=== PATIENT | female | born 1950 ===

== ENCOUNTER 2017-03-17 18:16 | Inpatient (IN) | payer BC ==
[2017-03-17 18:16] VITALS: BMI 24.0
[2017-03-17] MEDS ORDERED: Sodium Chloride 0.9% 1,000 ML IV STA ×2 (19:11→22:27)
--- NOTE | 2017-03-17 19:31 | ED PDOC ---
HPI: Abdomen Time Seen by Provider: 03/17/17 18:45 Chief Complaint (Nursing): Abdominal Pain Chief Complaint (Provider): Abdominal Pain History Per: Patient History/Exam Limitations: no limitations Onset/Duration Of Symptoms: Days (x1) Location Of Pain/Discomfort: LLQ Additional Complaint(s): Tiff Alejo is a 67 year old female with a history of hypothyroidism and high cholesterol that presents to the ED with a chief complaint of mucous and blood present in her stool that she began to experience last night after she drank a milkshake. Patient reports that she has been experiencing left lower quadrant pain and went to the bathroom all night, but states that she was not having diarrhea, but was rather excreting mucous and blood. She reports associated headache and fever and has not taken any medication for her symptoms. She denies vomiting or pain in her rectum, but states that she may have a hemorrhoid. PMD: Dr. Chopra Past Medical History Reviewed: Historical Data, Vital Signs Vital Signs: Last Vital Signs Temp 101.0 F H 03/17/17 22:01 Pulse 86 03/17/17 18:44 Resp 20 03/17/17 18:44 BP 121/79 03/17/17 18:44 Pulse Ox 99 03/17/17 22:29 - Medical History PMH: Fractures (LEFT ARM /RIBS), HTN, Hypercholesterolemia, Hypothyroidism (s/p thyroidectomy), Osteoporosis Denies: HIV, Chronic Kidney Disease - Family History Family History: States: Unknown Family Hx - Immunization History Hx Tetanus Toxoid Vaccination: No Hx Influenza Vaccination: No Hx Pneumococcal Vaccination: No - Home Medications Home Medications: Ambulatory Orders Medication Instructions Recorded Rosuvastatin Calcium [Crestor] 10 mg PO MWF 12/14/14 Linaclotide [Linzess] 145 mcg PO DAILY 09/26/15 Calcium Carbonate/Vitamin D 1 tab PO BID #0 tab 09/27/15 [Oscal-D 250 mg-125 Units Tab] Levothyroxine [Synthroid] 88 mcg PO DAILY@0630 #0 tab 09/27/15 - Allergies Allergies/Adverse Reactions: Allergies Allergy/AdvReac Type Severity Reaction Status Date / Time aspirin Allergy Mild RASH Verified 09/26/15 11:41 seafood Allergy Mild RASH Uncoded 09/26/15 11:41 Review of Systems Gastrointestinal: Positive for: Abdominal Pain (LLQ), Other (mucous and blood present in stool). Negative for: Vomiting, Diarrhea, Rectal Pain Physical Exam - Reviewed Nursing Documentation Reviewed: Yes Vital Signs Reviewed: Yes - Physical Exam Appears: Positive for: Non-toxic, No Acute Distress Head Exam: Positive for: ATRAUMATIC, NORMOCEPHALIC Skin: Positive for: Normal Color, Warm Eye Exam: Positive for: Normal appearance, EOMI, PERRL ENT: Positive for: Normal ENT Inspection. Negative for: Pharyngeal Erythema Cardiovascular/Chest: Positive for: Regular Rate, Rhythm. Negative for: Murmur Respiratory: Positive for: Normal Breath Sounds. Negative for: Wheezing Gastrointestinal/Abdominal: Positive for: Soft, Tenderness (significant TTP of LLQ). Negative for: Distended, Rebound Neurologic/Psych: Positive for: Alert, Oriented. Negative for: Motor/Sensory Deficits - Laboratory Results Result Diagrams: 03/17/17 19:20 03/17/17 19:42 - ECG O2 Sat by Pulse Oximetry: 99 (RA) Pulse Ox Interpretation: Normal - Progress Re-evaluation Time: 22:25 Condition: Re-examined, Unchanged Medical Decision Making Medical Decision Making: Impression: Abdominal Pain, ddx include Acute Diverticulitis vs. Colitis Plan: * CT Scan A/P with IV contrast * VBG Shock Panel * CBC * Type and Screen * Blood Culture * Morphine 4 mg iV * Zofran Inj 4 mg IV * NaCl 1000 mL at 1000 mLs/hr * Reevaluation CT Scan A/P with IV Contrast IMPRESSION: - Findings compatible with acute diverticulitis of the sigmoid colon. The degree of associated colonic wall thickening and inflammation is marked. No evidence of abscess formation or perforation. - Small amount of abdominal and pelvic free fluid. - Otherwise, no evidence of significant acute process. - Large (9 x 9 cm) solid pelvic mass, most likely representing a large uterine fibroid. This could be confirmed with followup pelvic ultrasound, on a nonemergent basis. - See above for remaining findings Scribe Attestation: Documented by Josie Anderson, acting as a scribe for Kacy Boyle MD. Provider Scribe Attestation: All medical record entries made by the Scribe were at my direction and personally dictated by me. I have reviewed the chart and agree that the record accurately reflects my personal performance of the history, physical exam, medical decision making, and the department course for this patient. I have also personally directed, reviewed, and agree with the discharge instructions and disposition. Disposition - Clinical Impression Clinical Impression: Acute diverticulitis, Pelvic mass - Patient ED Disposition Is Patient to be Admitted: Yes Discussed With Dr.: Jase Chopra Doctor Will See Patient In The: Hospital Counseled Patient/Family Regarding: Studies Performed, Diagnosis - Disposition Disposition Time: 22:29 Condition: FAIR Forms: VIVA ([place]ots[place]an) - Pt Status Changed To: Hospital Disposition Of: Inpatient - Admit Certification Admit to Inpatient:: After my assessment, the patient will require hospitalization for at least two midnights. This is because of the severity of symptoms shown, intensity of services needed, and/or the medical risk in this patient being treated as an outpatient. - POA Present On Arrival: None
[2017-03-17 19:43] LABS: VENOUS BLOOD GAS BASE EXCESS 5.8 mmol/L (0.0-2.0); VENOUS BLOOD GAS PCO2 47 mmHg (40-60); VENOUS BLOOD PH 7.43 (7.32-7.43)
[2017-03-17 19:57] LABS: BASO % 0.4 % (0.0-2.0); EOS # 0.1 K/uL (0.0-0.7); EOS % 1.2 % (0.0-4.0); HEMATOCRIT 38.5 % (34.0-47.0); LYMPH # 1.6 K/uL (1.0-4.3); LYMPH % 13.9 % (20.0-40.0); MEAN CORPUSCULAR HEMOGLOBIN 28.7 pg (27.0-31.0); MONO # 0.8 K/uL (0.0-0.8); MONO % 6.7 % (0.0-10.0); NEUT # 9.1 K/uL (1.8-7.0); NEUT % 77.8 % (50.0-75.0); RED CELL DISTRIBUTION WIDTH 14.3 % (11.5-14.5); WHITE BLOOD COUNT 11.6 K/uL (4.8-10.8)
[2017-03-17 20:14] LABS: ALB/GLOB RATIO 1.4 (1.0-2.1); ALKALINE PHOSPHATASE 72 U/L (38-126); ALT/SGPT 27 U/L (9-52); AST/SGOT 30 U/L (14-36); BILIRUBIN,TOTAL 0.5 mg/dl (0.2-1.3); BLOOD UREA NITROGEN 13 mg/dl (7-17); CALCIUM 9.2 mg/dL (8.4-10.2); CARBON DIOXIDE 27 mmol/L (22-30); CHLORIDE 100 mmol/L (98-107); GFR AFRICAN-AMERICAN > 60; GLUCOSE,RANDOM 125 mg/dL (65-105); POTASSIUM 3.8 MMOL/L (3.6-5.0); SODIUM 140 mmol/l (132-148)
[2017-03-17] MEDS ORDERED: Iohexol 300 100 ML IJ ONE (21:04)
[2017-03-17] MEDS ORDERED: Sodium Chloride 0.9% 50 ML IV ONE (21:05)
--- NOTE | 2017-03-17 22:19 | CT ---
EXAM: CT Abdomen and Pelvis With Intravenous Contrast EXAM DATE/TIME: 03/17/2017 7:08 PM CLINICAL HISTORY: 67 years old, female; Pain; Abdominal pain; Localized; Left; Additional info: Llq pain bloody stools TECHNIQUE: Axial computed tomography images of the abdomen and pelvis with intravenous contrast. All CT scans at this facility use one or more dose reduction techniques, viz.: automated exposure control; ma/kV adjustment per patient size (including targeted exams where dose is matched to indication; i.e. head); or iterative reconstruction technique. Coronal and sagittal reformatted images were created and reviewed. CONTRAST: 90 mL of [id number] administered intravenously. COMPARISON: No relevant prior studies available. FINDINGS: LIMITATIONS: Mild streak/motion artifact. LOWER THORAX: No infiltrate seen in the lung bases. ABDOMEN: LIVER: No acute abnormality of the liver identified. GALLBLADDER AND BILE DUCTS: No CT evidence of acute cholecystitis. No evidence of significant biliary ductal dilatation. PANCREAS: No CT evidence of acute pancreatitis. SPLEEN: No acute abnormality of the spleen identified. ADRENALS: No acute abnormality of the adrenal glands identified. KIDNEYS AND URETERS: No acute abnormality of the kidneys identified. No evidence of significant hydrouereteronephrosis. STOMACH AND BOWEL: Moderate to marked fat stranding and infiltration, consistent with inflammatory change, is seen in the fat adjacent to the proximal to mid colon. Marked segmental wall thickening of the colon is also noted in this same area. There is a small amount of nearby pelvic free fluid. The inflammatory changes surround a colonic diverticulum, image 39/series 601. Findings are most compatible with acute diverticulitis. No evidence of significant focal fluid collection or abscess. No definite nearby extraluminal air seen to suggest perforation. Extensive diverticulosis of the left colon is noted. Otherwise, no significant abnormality of the bowel is identified. No evidence of bowel obstruction. APPENDIX: Appendix is seen, and is within normal limits in appearance. PELVIS: BLADDER: No acute abnormality of the bladder identified. REPRODUCTIVE: Large (9 x 9 cm) solid, well-defined, round mass is seen in the pelvis, abutting the uterus anteriorly, most likely representing a large uterine fibroid. This could be confirmed with followup pelvic ultrasound, on a nonemergent basis. No evidence of large cystic adnexal masses. ABDOMEN and PELVIS: INTRAPERITONEAL SPACE: Small amount of abdominal and pelvic free fluid. No evidence of free air. BONES/JOINTS: No acute fractures or other acute bony abnormality noted. SOFT TISSUES: No acute abnormality of the visualized soft tissues is seen. VASCULATURE: No evidence of abdominal aortic aneurysm. No evidence of periaortic hemorrhage. LYMPH NODES: No evidence of diffuse lymphadenopathy. IMPRESSION: - Findings compatible with acute diverticulitis of the sigmoid colon. The degree of associated colonic wall thickening and inflammation is marked. No evidence of abscess formation or perforation. - Small amount of abdominal and pelvic free fluid. - Otherwise, no evidence of significant acute process. - Large (9 x 9 cm) solid pelvic mass, most likely representing a large uterine fibroid. This could be confirmed with followup pelvic ultrasound, on a nonemergent basis. - See above for remaining findings.
[2017-03-17] MEDS ORDERED: Ciprofloxacin 400mg/200ml D5W 400 MG/200 ML BAG IVPB STA (22:26)
[2017-03-17] MEDS ORDERED: metroNIDAZOLE 500mg/100ml NS 100 ML IVPB STA (22:26)
[2017-03-18] MEDS: Dextrose 5%/Lactated Ringer's 1,000 ML IV SCH ×3 (01:13→16:16)
[2017-03-18] MEDS: Levothyroxine 88 MCG TAB PO SCH (06:10)
[2017-03-18 06:16] LABS: HEMATOCRIT 36.6 % (34.0-47.0); MEAN CELL VOLUME 87.2 fl (81.0-99.0); MEAN CORPUSCULAR HEMOGLOBIN 28.5 pg (27.0-31.0); MEAN CORPUSCULAR HGB CONC 32.6 g/dL (33.0-37.0); RED CELL DISTRIBUTION WIDTH 14.4 % (11.5-14.5); WHITE BLOOD COUNT 11.5 K/uL (4.8-10.8)
[2017-03-18 06:27] LABS: ALB/GLOB RATIO 1.3 (1.0-2.1); ALKALINE PHOSPHATASE 56 U/L (38-126); ALT/SGPT 25 U/L (9-52); AST/SGOT 20 U/L (14-36); BILIRUBIN,TOTAL 0.7 mg/dl (0.2-1.3); BLOOD UREA NITROGEN 7 mg/dl (7-17); CALCIUM 8.3 mg/dL (8.4-10.2); CARBON DIOXIDE 26 mmol/L (22-30); CHLORIDE 107 mmol/L (98-107); GFR AFRICAN-AMERICAN > 60; GLUCOSE,RANDOM 120 mg/dL (65-105); POTASSIUM 4.4 MMOL/L (3.6-5.0); SODIUM 143 mmol/l (132-148); TOTAL PROTEIN 6.1 G/DL (6.3-8.2)
[2017-03-18] MEDS ORDERED: Patient's Own Med (Rosuvastatin Calcium [Crestor] 10 MG) PO SCH (09:00)
[2017-03-18] MEDS: Ciprofloxacin 400mg/200ml D5W 400 MG/200 ML BAG IVPB SCH ×2 (10:16→20:56)
--- NOTE | 2017-03-18 14:21 | CP.PCM.HP ---
<Marcelo Anderson - Last Filed: 03/18/17 14:21> History of Present Illness - History of Present Illness History of Present Illness: 67 y/o female with a PMHx remakrable for hypothyroidism and HLD presented to the [facility] ED with a chief complaint of mucous and blood present in her stool. The symptoms she reports began last night after she drank a milkshake. Patient reports that she has been experiencing left lower quadrant pain and went to the bathroom all night, but states that she was not having diarrhea, but was rather excreting mucous and blood. She reports the pain is about 7/10 and isolated to LLQ. Nonradiating, constant, alleviated with rest. Exacerbated with movement and palpation. She reports associated headache and fever and has not taken any medication for her symptoms. She denies any sick contacts. Denies any chills, changes in vision, CP/SOB/Palpitations, N/V, urinary symptoms, numbness/ tingling. Of note, she reprots having prior symptoms in the past and has been admitted before for diverticulitis. Present on Admission - Present on Admission Any Indicators Present on Admission: No Review of Systems - Review of Systems Review of Systems: as per hpi Past Patient History - Past Medical History & Family History Past Medical History?: Yes - Past Social History Smoking Status: Never Smoked Alcohol: Social Drugs: Denies Home Situation {Lives}: With Family Domestic Violence: Negative - CARDIAC Hx Cardiac Disorders: Yes Hx Hypercholesterolemia: Yes Hx Hypertension: Yes - PULMONARY Hx Respiratory Disorders: No - NEUROLOGICAL Hx Neurological Disorder: No - HEENT Hx HEENT Problems: No - RENAL Hx Chronic Kidney Disease: No - ENDOCRINE/METABOLIC Hx Endocrine Disorders: Yes Hx Hypothyroidism: Yes (s/p thyroidectomy) - HEMATOLOGICAL/ONCOLOGICAL Hx Blood Disorders: No Hx Human Immunodeficiency Virus (HIV): No - INTEGUMENTARY Hx Dermatological Problems: No - MUSCULOSKELETAL/RHEUMATOLOGICAL Hx Musculoskeletal Disorders: Yes Hx Falls: Yes - GASTROINTESTINAL Hx Gastrointestinal Disorders: No - GENITOURINARY/GYNECOLOGICAL Hx Genitourinary Disorders: No - PSYCHIATRIC Hx Psychophysiologic Disorder: No Hx Substance Use: No - SURGICAL HISTORY Hx Surgeries: Yes Hx Orthopedic Surgery: Yes Hx Thyroidectomy: Yes - ANESTHESIA Hx Anesthesia: Yes Hx Anesthesia Reactions: No Hx Malignant Hyperthermia: No Meds Allergies/Adverse Reactions: Allergies Allergy/AdvReac Type Severity Reaction Status Date / Time aspirin Allergy Mild RASH Verified 09/26/15 11:41 seafood Allergy Mild RASH Uncoded 09/26/15 11:41 Physical Exam - Constitutional Appears: Non-toxic, No Acute Distress - Eye Exam Eye Exam: EOMI Pupil Exam: PERRL - ENT Exam ENT Exam: Mucous Membranes Moist - Respiratory Exam Respiratory Exam: Clear to Auscultation Bilateral, NORMAL BREATHING PATTERN. absent: Accessory Muscle Use, Rales, Rhonchi, Wheezes - Cardiovascular Exam Cardiovascular Exam: REGULAR RHYTHM, RRR, +S1, +S2. absent: Gallop, JVD, Rubs, Systolic Murmur - GI/Abdominal Exam GI & Abdominal Exam: Normal Bowel Sounds, Soft, Tenderness (LLQ). absent: Distended, Firm, Guarding, Rebound, Rigid - Extremities Exam Extremities exam: Positive for: normal capillary refill, normal inspection, pedal pulses present. Negative for: calf tenderness, pedal edema - Neurological Exam Neurological exam: Alert, CN II-XII Intact, Oriented x3 Results - Vital Signs Recent Vital Signs: Last Vital Signs Temp 98.3 F 03/18/17 08:20 Pulse 53 L 03/18/17 08:20 Resp 20 03/18/17 08:20 BP 99/58 L 03/18/17 08:20 Pulse Ox 94 L 03/18/17 08:20 - Labs Result Diagrams: 03/18/17 05:35 03/18/17 05:35 Labs: Laboratory Results - last 24 hr 03/17/17 03/17/17 03/17/17 19:20 19:20 19:33 WBC 11.6 H D RBC 4.43 Hgb 12.7 Hct 38.5 MCV 87.0 MCH 28.7 MCHC 33.0 RDW 14.3 Plt Count 235 MPV 8.0 Neut % (Auto) 77.8 H Lymph % (Auto) 13.9 L [place] % (Auto) 6.7 Eos % (Auto) 1.2 Baso % (Auto) 0.4 Neut # 9.1 H Lymph # 1.6 [place] # 0.8 Eos # 0.1 Baso # 0.0 ESR pO2 21 L VBG pH 7.43 VBG pCO2 47 VBG HCO3 27.8 VBG Total CO2 32.6 H VBG O2 Sat (Calc) 40.3 VBG Base Excess 5.8 H VBG Potassium 3.9 Sodium 138.0 Chloride 103.0 Glucose 139 H Lactate 0.7 FiO2 21.0 Potassium Carbon Dioxide Anion Gap BUN Creatinine Est GFR ( Amer) Est GFR (Non-Af Amer) Random Glucose Calcium Total Bilirubin AST ALT Alkaline Phosphatase Total Protein Albumin Globulin Albumin/Globulin Ratio Venous Blood Potassium 3.9 Blood Type O POSITIVE Antibody Screen Negative BBK History Checked No verified bt 03/17/17 03/18/17 03/18/17 19:42 05:35 05:35 WBC 11.5 H RBC 4.19 Hgb 11.9 L Hct 36.6 MCV 87.2 MCH 28.5 MCHC 32.6 L RDW 14.4 Plt Count 213 MPV Neut % (Auto) Lymph % (Auto) [place] % (Auto) Eos % (Auto) Baso % (Auto) Neut # Lymph # [place] # Eos # Baso # ESR 15 pO2 VBG pH VBG pCO2 VBG HCO3 VBG Total CO2 VBG O2 Sat (Calc) VBG Base Excess VBG Potassium Sodium 140 143 Chloride 100 107 Glucose Lactate FiO2 Potassium 3.8 4.4 Carbon Dioxide 27 26 Anion Gap 17 15 BUN 13 7 Creatinine 0.7 0.7 Est GFR ( Amer) > 60 > 60 Est GFR (Non-Af Amer) > 60 > 60 Random Glucose 125 H 120 H Calcium 9.2 8.3 L Total Bilirubin 0.5 0.7 AST 30 20 ALT 27 25 Alkaline Phosphatase 72 56 Total Protein 7.0 6.1 L Albumin 4.1 3.4 L Globulin 2.9 2.7 Albumin/Globulin Ratio 1.4 1.3 Venous Blood Potassium Blood Type Antibody Screen BBK History Checked Assessment & Plan (1) Acute diverticulitis Assessment and Plan: IV Abx as ordered IV Fluid hydration advance diet to CLD as tolerated monitor vitals/cbc Status: Acute (2) Hypothyroidism Assessment and Plan: c/w home meds Status: Chronic (3) Hyperlipidemia Assessment and Plan: c/w home meds Status: Chronic <Jase Chopra - Last Filed: 03/20/17 10:34> Results - Vital Signs Recent Vital Signs: Last Vital Signs Temp 98.2 F 03/20/17 07:25 Pulse 58 L 03/20/17 07:25 Resp 18 03/20/17 07:25 BP 103/66 03/20/17 07:25 Pulse Ox 96 10/01/17 07:25 - Labs Result Diagrams: 03/19/17 05:40 03/19/17 05:40 Assessment & Plan (1) Acute diverticulitis Status: Acute (2) Hyperlipidemia Status: Chronic (3) Hypothyroidism Status: Chronic - Assessment and Plan (Free Text) Plan: I was present during evaluation and discussed with Dr Anderson re plans of care. and treatment Jase Chopra M.D.
[2017-03-19] MEDS: Levothyroxine 88 MCG TAB PO SCH (05:54)
[2017-03-19 07:06] LABS: HEMATOCRIT 36.2 % (34.0-47.0); MEAN CELL VOLUME 86.2 fl (81.0-99.0); MEAN CORPUSCULAR HEMOGLOBIN 28.9 pg (27.0-31.0); MEAN CORPUSCULAR HGB CONC 33.5 g/dL (33.0-37.0); WHITE BLOOD COUNT 6.1 K/uL (4.8-10.8)
[2017-03-19 07:15] LABS: BLOOD UREA NITROGEN 3 mg/dl (7-17); CALCIUM 8.7 mg/dL (8.4-10.2); CARBON DIOXIDE 27 mmol/L (22-30); CHLORIDE 107 mmol/L (98-107); GFR AFRICAN-AMERICAN > 60; GLUCOSE,RANDOM 103 mg/dL (65-105); SODIUM 146 mmol/l (132-148)
[2017-03-19] MEDS: Ciprofloxacin 400mg/200ml D5W 400 MG/200 ML BAG IVPB SCH ×2 (08:13→21:07)
[2017-03-19] MEDS: Dextrose 5%/Lactated Ringer's 1,000 ML IV SCH ×2 (08:13→21:30)
--- NOTE | 2017-03-19 18:38 | CP.PCM.PN ---
Subjective - Date & Time of Evaluation Date of Evaluation: 03/19/17 Time of Evaluation: 18:37 - Subjective Subjective: Patient has some constipation. Still with some tenderness on the LLQ area. Noted improvement of WBC to normal. Objective - Vital Signs/Intake and Output Vital Signs (last 24 hours): Temp Pulse Resp BP Pulse Ox 98.2 F 60 19 116/64 97 03/19/17 15:43 03/19/17 15:43 03/19/17 15:43 03/19/17 15:43 03/19/17 15:43 - Medications Medications: Current Medications Atorvastatin Calcium (Lipitor) 20 mg PO MWF@2200 [facility] Last Admin: 03/18/17 21:00 Dose: 20 mg Hydromorphone HCl (Dilaudid) 1 mg IVP Q4 PRN PRN Reason: Pain, moderate (4-7) Ciprofloxacin (Cipro 400mg/200ml Dsw) 400 mg in 200 mls @ 200 mls/hr IVPB Q12 [facility] Last Admin: 03/19/17 08:13 Dose: 200 mls/hr Dextrose/Lactated Ringer's (Dextrose 5%/Lactated Ringer's) 1,000 mls @ 80 mls/ hr IV .[id number] [facility] Stop: 03/20/17 08:00 Last Admin: 03/19/17 08:13 Dose: 80 mls/hr Levothyroxine Sodium (Synthroid) 88 mcg PO DAILY@0630 [facility] Last Admin: 03/19/17 05:54 Dose: 88 mcg Metronidazole (Flagyl) 500 mg PO Q8@0000,0800,1600 [facility] Last Admin: 03/19/17 16:01 Dose: 500 mg Pantoprazole Sodium (Protonix Inj) 40 mg IVP DAILY [facility] Last Admin: 03/19/17 08:14 Dose: 40 mg - Labs Labs: 03/19/17 05:40 03/19/17 05:40 - Head Exam Head Exam: NORMAL INSPECTION - Eye Exam Eye Exam: Normal appearance - ENT Exam ENT Exam: Mucous Membranes Moist - Respiratory Exam Respiratory Exam: Clear to Ausculation Bilateral - Cardiovascular Exam Cardiovascular Exam: REGULAR RHYTHM - GI/Abdominal Exam GI & Abdominal Exam: Tenderness, Normal Bowel Sounds Assessment and Plan (1) Acute diverticulitis Status: Acute (2) Hyperlipidemia Status: Chronic (3) Hypothyroidism Status: Chronic - Assessment and Plan (Free Text) Plan: Cont meds cont iv antibioticxs advance diet
[2017-03-20] MEDS: Levothyroxine 88 MCG TAB PO SCH (07:18)
[2017-03-20 07:25] VITALS: BP 103/66; PULSE 58; RESP 18; TEMP 98.2; O2SAT 96
[2017-03-20] MEDS: Ciprofloxacin 400mg/200ml D5W 400 MG/200 ML BAG IVPB SCH (09:07)
--- NOTE | 2017-03-20 10:29 | CP.PCM.DIS ---
Provider - Provider Date of Admission: 03/17/17 22:27 Attending physician: Jase Chopra MD Time Spent in preparation of Discharge (in minutes): 30 Hospital Course - Lab Results Lab Results: Micro Results 03/17/17 19:35 Blood-Venous Blood Culture - Preliminary NO GROWTH AFTER 48 HOURS 03/17/17 19:20 Blood-Venous Blood Culture - Preliminary NO GROWTH AFTER 48 HOURS Most Recent Lab Values WBC 6.1 K/uL (4.8-10.8) 03/19/17 05:40 RBC 4.20 Mil/uL (3.80-5.20) 03/19/17 05:40 Hgb 12.1 g/dL (12.0-16.0) 03/19/17 05:40 Hct 36.2 % (34.0-47.0) 03/19/17 05:40 MCV 86.2 fl (81.0-99.0) 03/19/17 05:40 MCH 28.9 pg (27.0-31.0) 03/19/17 05:40 MCHC 33.5 g/dL (33.0-37.0) 03/19/17 05:40 RDW 14.0 % (11.5-14.5) 03/19/17 05:40 Plt Count 212 K/uL (130-400) 03/19/17 05:40 MPV 8.0 fl (7.2-11.7) 03/17/17 19:20 Neut % (Auto) 77.8 % (50.0-75.0) H 03/17/17 19:20 Lymph % (Auto) 13.9 % (20.0-40.0) L 03/17/17 19:20 [place] % (Auto) 6.7 % (0.0-10.0) 03/17/17 19:20 Eos % (Auto) 1.2 % (0.0-4.0) 03/17/17 19:20 Baso % (Auto) 0.4 % (0.0-2.0) 03/17/17 19:20 Neut # 9.1 K/uL (1.8-7.0) H 03/17/17 19:20 Lymph # 1.6 K/uL (1.0-4.3) 03/17/17 19:20 [place] # 0.8 K/uL (0.0-0.8) 03/17/17 19:20 Eos # 0.1 K/uL (0.0-0.7) 03/17/17 19:20 Baso # 0.0 K/uL (0.0-0.2) 03/17/17 19:20 ESR 15 mm/hr (0-30) 03/18/17 05:35 pO2 21 mm/Hg (30-55) L 03/17/17 19:33 VBG pH 7.43 (7.32-7.43) 03/17/17 19:33 VBG pCO2 47 mmHg (40-60) 03/17/17 19:33 VBG HCO3 27.8 mmol/L 03/17/17 19:33 VBG Total CO2 32.6 mmol/L (22-28) H 03/17/17 19:33 VBG O2 Sat (Calc) 40.3 % (40-65) 03/17/17 19:33 VBG Base Excess 5.8 mmol/L (0.0-2.0) H 03/17/17 19:33 VBG Potassium 3.9 mmol/L (3.6-5.2) 03/17/17 19:33 Sodium 138.0 mmol/L (132-148) 03/17/17 19:33 Chloride 103.0 mmol/L (98-107) 03/17/17 19:33 Glucose 139 mg/dL (65-105) H 03/17/17 19:33 Lactate 0.7 mmol/L (0.7-2.1) 03/17/17 19:33 FiO2 21.0 % 03/17/17 19:33 Sodium 146 mmol/l (132-148) 03/19/17 05:40 Potassium 4.0 MMOL/L (3.6-5.0) 03/19/17 05:40 Chloride 107 mmol/L (98-107) 03/19/17 05:40 Carbon Dioxide 27 mmol/L (22-30) 03/19/17 05:40 Anion Gap 16 (10-20) 03/19/17 05:40 BUN 3 mg/dl (7-17) L 03/19/17 05:40 Creatinine 0.6 mg/dL (0.7-1.2) L 03/19/17 05:40 Est GFR ( Amer) > 60 03/19/17 05:40 Est GFR (Non-Af Amer) > 60 03/19/17 05:40 Random Glucose 103 mg/dL (65-105) 03/19/17 05:40 Calcium 8.7 mg/dL (8.4-10.2) 03/19/17 05:40 Total Bilirubin 0.7 mg/dl (0.2-1.3) 03/18/17 05:35 AST 20 U/L (14-36) 03/18/17 05:35 ALT 25 U/L (9-52) 03/18/17 05:35 Alkaline Phosphatase 56 U/L (38-126) 03/18/17 05:35 Total Protein 6.1 G/DL (6.3-8.2) L 03/18/17 05:35 Albumin 3.4 g/dL (3.5-5.0) L 03/18/17 05:35 Globulin 2.7 gm/dL (2.2-3.9) 03/18/17 05:35 Albumin/Globulin Ratio 1.3 (1.0-2.1) 03/18/17 05:35 Venous Blood Potassium 3.9 mmol/L (3.6-5.2) 03/17/17 19:33 Blood Type O POSITIVE 03/17/17 19:20 Antibody Screen Negative 03/17/17 19:20 BBK History Checked No verified bt 03/17/17 19:20 - Hospital Course Hospital Course: This is a 67 y/o female admitted for worsening of abdominal pain, Noted to have diverticulitis on CT scan She was started on Iv Cipro and Flagy and responded very well to treatment. Diet was advanced and tolerated well. She was sent home on same home meds and maintained on Cipro and Flagyl and stool softener. Discharge Exam - Head Exam Head Exam: ATRAUMATIC, NORMOCEPHALIC - Eye Exam Eye Exam: Normal appearance - Respiratory Exam Respiratory Exam: NORMAL BREATHING PATTERN - Cardiovascular Exam Cardiovascular Exam: REGULAR RHYTHM - GI/Abdominal Exam GI & Abdominal Exam: Normal Bowel Sounds - Neurological Exam Neurological exam: CN II-XII Intact, Oriented x3 - Psychiatric Exam Psychiatric exam: Normal Mood Discharge Plan - Follow Up Plan Condition: FAIR Disposition: HOME/ ROUTINE Additional Instructions: Rx Cipro and flagyl for 10 days follow up in 2 weeks
== END 2017-03-20 11:06 | disposition home or self-care (01) | DRG 392 ==
LOC: H.ER 18:16 → H.ERHOLD 22:27 → H.MEDSURG1 03-18 00:28
PROVIDERS: ADMIT Family Medicine; ATTEND Family Medicine
DX: K57.32 Diverticulitis of large intestine without perforation or abscess without bleeding (principal); I10 Essential (primary) hypertension; D25.9 Leiomyoma of uterus, unspecified; E78.00 Pure hypercholesterolemia, unspecified; E78.5 Hyperlipidemia, unspecified; E03.9 Hypothyroidism, unspecified; K59.00 Constipation, unspecified; M81.0 Age-related osteoporosis without current pathological fracture; Z79.899 Other long term (current) drug therapy; R51 Headache

== ENCOUNTER 2017-05-19 12:30 | Emergency (ER) | payer BC ==
[2017-05-19 12:30] VITALS: BMI 24.0
[2017-05-19 12:39] VITALS: BP 128/73; PULSE 56; RESP 18; TEMP 97.9; O2SAT 97
--- NOTE | 2017-05-19 13:05 | ED PDOC ---
HPI: Back Time Seen by Provider: 05/19/17 12:44 Chief Complaint (Nursing): Back Pain Chief Complaint (Provider): Back Pain History Per: Patient History/Exam Limitations: no limitations Onset/Duration Of Symptoms: Days (x2) Current Symptoms Are (Timing): Still Present Additional Complaint(s): Tiff Alejo is a 67 year old female with a history of hypothyroidism and thyroid CA that presents to the ED with a chief complaint of right hip pain that radiates to her right lower back and right glute that she has been experiencing for the past two days. Patient reports that this has happened before, and she has received an X-Ray in the past, after which she was told that she may have "bone growth" in that area. She states that she has been Tylenol for her pain at home with minimal relief. Past Medical History Reviewed: Historical Data, Nursing Documentation, Vital Signs Vital Signs: Last Vital Signs Temp 97.9 F 05/19/17 12:36 Pulse 56 L 05/19/17 12:36 Resp 18 05/19/17 12:36 BP 128/73 05/19/17 12:36 Pulse Ox 97 05/19/17 12:36 - Medical History PMH: Fractures (LEFT ARM /RIBS), HTN, Hypercholesterolemia, Hypothyroidism (s/p thyroidectomy), Osteoporosis Denies: HIV, Chronic Kidney Disease Other PMH: thyroid CA - Family History Family History: States: Unknown Family Hx - Social History Current smoker - smoking cessation education provided: No Alcohol: None Drugs: Denies - Immunization History Hx Tetanus Toxoid Vaccination: No Hx Influenza Vaccination: No Hx Pneumococcal Vaccination: No - Home Medications Home Medications: Ambulatory Orders Medication Instructions Recorded Rosuvastatin Calcium [Crestor] 10 mg PO MWF 12/14/14 Levothyroxine [Synthroid] 88 mcg PO DAILY@0630 #0 tab 09/27/15 Acetaminophen with Codeine 1 tab PO Q6H PRN #15 tab 05/19/17 [Tylenol with Codeine No. 3 300 mg-30 mg] - Allergies Allergies/Adverse Reactions: Allergies Allergy/AdvReac Type Severity Reaction Status Date / Time aspirin Allergy Mild RASH Verified 09/26/15 11:41 seafood Allergy Mild RASH Uncoded 09/26/15 11:41 Review of Systems ROS Statement: Except As Marked, All Systems Reviewed And Found Negative Constitutional: Negative for: Fever, Chills Musculoskeletal: Positive for: Back Pain (right lower back pain), Leg Pain ( right hip pain) Physical Exam - Reviewed Nursing Documentation Reviewed: Yes Vital Signs Reviewed: Yes - Physical Exam Appears: Positive for: Non-toxic, No Acute Distress Head Exam: Positive for: ATRAUMATIC, NORMOCEPHALIC Skin: Positive for: Normal Color, Warm Eye Exam: Positive for: Normal appearance, EOMI, PERRL ENT: Positive for: Normal ENT Inspection Neck: Positive for: Normal Cardiovascular/Chest: Positive for: Regular Rate, Rhythm Respiratory: Positive for: Normal Breath Sounds. Negative for: Accessory Muscle Use Gastrointestinal/Abdominal: Positive for: Normal Exam, Soft. Negative for: Tenderness Back: Negative for: Normal Inspection (Positive right leg raise) Extremity: Positive for: Tenderness (TTP right gluteus muscle). Negative for: Deformity, Swelling Neurologic/Psych: Positive for: Alert, Oriented. Negative for: Motor/Sensory Deficits - ECG O2 Sat by Pulse Oximetry: 97 (RA) Pulse Ox Interpretation: Normal Medical Decision Making Medical Decision Making: Impression: Sciatica Plan: * Tylenol/Codeine 300 mg/30 mg * Reevaluation Pt reports feeling better on re-evaluation. Scribe Attestation: Documented by Josie Anderson, acting as a scribe for Kati Butcher PA-C. Provider Scribe Attestation: All medical record entries made by the Scribe were at my direction and personally dictated by me. I have reviewed the chart and agree that the record accurately reflects my personal performance of the history, physical exam, medical decision making, and the department course for this patient. I have also personally directed, reviewed, and agree with the discharge instructions and disposition. Disposition - Clinical Impression Clinical Impression: Back pain - Patient ED Disposition Is Patient to be Admitted: No Counseled Patient/Family Regarding: Need For Followup, Rx Given - Disposition Disposition: Routine/Home Disposition Time: 15:01 Condition: GOOD Prescriptions: Acetaminophen with Codeine [Tylenol with Codeine No. 3 300 mg-30 mg] 1 tab PO Q6H PRN #15 tab PRN Reason: Pain, Severe (8-10) Instructions: Acute Low Back Pain (ED) Forms: [facility] (Sammarinese)
[2017-05-19] MEDS ORDERED: Acetaminophen-Codeine 300/30 mg Tab PO STA (13:11)
[2017-05-19] MEDS ORDERED: Acetaminophen-Codeine 300/30 mg Tab ONE (13:18)
== END 2017-05-19 16:34 | disposition home or self-care (01) ==
LOC: H.ER 12:30
DX: M54.5 Low back pain (principal); E03.9 Hypothyroidism, unspecified; E78.00 Pure hypercholesterolemia, unspecified; I10 Essential (primary) hypertension; M81.0 Age-related osteoporosis without current pathological fracture; Z85.850 Personal history of malignant neoplasm of thyroid

== ENCOUNTER 2017-08-05 09:29 | Emergency (ER) | payer BC ==
[2017-08-05 09:36] VITALS: BMI 23.4
[2017-08-05] MEDS ORDERED: Albuterol 0.083% Inhal Sol (2.5 mg/3 mL) UD INH STA (10:02)
[2017-08-05] MEDS ORDERED: Albuterol-Ipratrop 3 mg / 0.5 (3 ml) UD ONE (10:21)
--- NOTE | 2017-08-05 10:50 | RAD ---
HISTORY: cough, SOB COMPARISON: Chest radiograph dated 09/26/2015. TECHNIQUE: Chest PA and lateral FINDINGS: LUNGS: No active pulmonary disease. PLEURA: No significant pleural effusion identified. No pneumothorax apparent. CARDIOVASCULAR: Normal. OSSEOUS STRUCTURES: Unchanged. VISUALIZED UPPER ABDOMEN: Normal. OTHER FINDINGS: None. IMPRESSION: No active disease.
--- NOTE | 2017-08-05 11:15 | ED PDOC ---
HPI: CCC, URI, Sore Throat Time Seen by Provider: 08/05/17 09:47 Chief Complaint (Nursing): Flu-like Symptoms Chief Complaint (Provider): Cough, SOB, no chest pain - (+) flu yesterday History Per: Patient History/Exam Limitations: no limitations Have you had recent travel within the past 21 days to any of the following countries: [place], [place], [place] or [place]?: No Onset/Duration Of Symptoms: Days Current Symptoms Are (Timing): Still Present Associated Symptoms: Fever (Tactile last night ), Cough, Myalgias. denies: Chills, Sore Throat, Vomiting, Diarrhea Past Medical History Reviewed: Historical Data, Nursing Documentation, Vital Signs Vital Signs: Last Vital Signs Temp 98.2 F 08/05/17 09:37 Pulse 70 08/05/17 09:37 Resp 16 08/05/17 09:37 BP 126/74 08/05/17 09:37 Pulse Ox 95 08/05/17 09:37 - Medical History PMH: Fractures (LEFT ARM /RIBS), Hypercholesterolemia, Hypothyroidism (s/p thyroidectomy), Osteoporosis Denies: HIV, HTN, Chronic Kidney Disease - Surgical History Surgical History: No Surg Hx - Family History Family History: States: Unknown Family Hx - Living Arrangements Living Arrangements: With Family - Immunization History Hx Tetanus Toxoid Vaccination: No Hx Influenza Vaccination: No Hx Pneumococcal Vaccination: No - Home Medications Home Medications: Ambulatory Orders Medication Instructions Recorded Rosuvastatin Calcium [Crestor] 10 mg PO MWF 12/14/14 Levothyroxine [Synthroid] 88 mcg PO DAILY@0630 #0 tab 09/27/15 Acetaminophen with Codeine 1 tab PO Q6H PRN #15 tab 05/19/17 [Tylenol with Codeine No. 3 300 mg-30 mg] diaZEpam [Valium] 5 mg PO Q6H PRN #15 tab 05/19/17 Albuterol HFA [Ventolin HFA 90 1 puff IH BID PRN #1 unit 08/05/17 mcg/actuation (8 g)] Oseltamivir [Tamiflu] 75 mg PO BID #10 cap 08/05/17 - Allergies Allergies/Adverse Reactions: Allergies Allergy/AdvReac Type Severity Reaction Status Date / Time aspirin Allergy Mild RASH Verified 09/26/15 11:41 seafood Allergy Mild RASH Uncoded 09/26/15 11:41 Review of Systems ROS Statement: Except As Marked, All Systems Reviewed And Found Negative Constitutional: Positive for: Fever. Negative for: Chills, Malaise Respiratory: Positive for: Cough, Shortness of Breath Physical Exam - Reviewed Nursing Documentation Reviewed: Yes Vital Signs Reviewed: Yes - Physical Exam Appears: Positive for: Well, Non-toxic, No Acute Distress Head Exam: Positive for: ATRAUMATIC, NORMAL INSPECTION, NORMOCEPHALIC Skin: Positive for: Normal Color, Warm, DRY Eye Exam: Positive for: Normal appearance ENT: Positive for: Normal ENT Inspection Neck: Positive for: Normal, Painless ROM Cardiovascular/Chest: Positive for: Regular Rate, Rhythm Respiratory: Positive for: Normal Breath Sounds. Negative for: Accessory Muscle Use, Respiratory Distress Gastrointestinal/Abdominal: Positive for: Normal Exam, Bowel Sounds, Soft Back: Positive for: Normal Inspection Extremity: Positive for: Normal ROM Neurologic/Psych: Positive for: Alert, Oriented - ECG O2 Sat by Pulse Oximetry: 95 Medical Decision Making Medical Decision Making: CXR - Normal. Pt reports feeling better after albuterol. Disposition - Clinical Impression Clinical Impression: Influenza - Patient ED Disposition Is Patient to be Admitted: No Counseled Patient/Family Regarding: Diagnosis, Need For Followup, Rx Given - Disposition Disposition: Routine/Home Disposition Time: 11:14 Condition: GOOD Prescriptions: Albuterol HFA [Ventolin HFA 90 mcg/actuation (8 g)] 1 puff IH BID PRN #1 unit PRN Reason: Shortness Of Breath Oseltamivir [Tamiflu] 75 mg PO BID #10 cap Instructions: Flu, Adult (DC) Print Language: POLISH
[2017-08-05 12:06] VITALS: BP 127/85; PULSE 77; RESP 17; TEMP 98.4; O2SAT 96
--- NOTE | 2017-08-05 19:00 | CARD ---
APPROVED REPORT EKG Measurement Heart [id number] <Conclusion> Normal sinus rhythm Left axis deviation Abnormal ECG
== END 2017-08-05 12:17 | disposition home or self-care (01) ==
LOC: H.ER 09:29
DX: J11.1 Influenza due to unidentified influenza virus with other respiratory manifestations (principal)

== ENCOUNTER 2017-08-07 11:32 | Emergency (ER) | payer BC ==
[2017-08-07 11:32] VITALS: BMI 23.4
[2017-08-07 12:38] VITALS: BP 136/82; PULSE 71; RESP 16; TEMP 98.6; O2SAT 100
[2017-08-07] MEDS ORDERED: Sodium Chloride 0.9% 1,000 ML IV SCH (13:00)
--- NOTE | 2017-08-07 13:26 | ED PDOC ---
HPI: General Adult Time Seen by Provider: 08/07/17 12:50 Chief Complaint (Nursing): Flu-like Symptoms Chief Complaint (Provider): Flu symptoms History Per: Patient History/Exam Limitations: no limitations Onset/Duration Of Symptoms: Days (2 days ago) Current Symptoms Are (Timing): Still Present Additional Complaint(s): 67 yo female presents to the ED complaining of persistent flu symptoms after being diagnosed with the flu, onset of 2 days ago. She also reports of constant body pain, especially worse in her lower extremities, and occasional cough. She has currently been taking Tamiflu with minimal relief. Past Medical History Reviewed: Historical Data, Nursing Documentation, Vital Signs Vital Signs: Last Vital Signs Temp 98.6 F 08/07/17 12:37 Pulse 71 08/07/17 12:37 Resp 16 08/07/17 12:37 BP 136/82 08/07/17 12:37 Pulse Ox 100 08/07/17 13:40 - Medical History PMH: Fractures (LEFT ARM /RIBS), Hypercholesterolemia, Hypothyroidism (s/p thyroidectomy), Osteoporosis Denies: HIV, HTN, Chronic Kidney Disease - Surgical History Surgical History: No Surg Hx - Family History Family History: States: Unknown Family Hx - Social History Current smoker - smoking cessation education provided: No Ex-Smoker (has not smoked in the last 12 months): No Alcohol: None Drugs: Denies - Immunization History Hx Tetanus Toxoid Vaccination: No Hx Influenza Vaccination: No Hx Pneumococcal Vaccination: No - Home Medications Home Medications: Ambulatory Orders Medication Instructions Recorded Rosuvastatin Calcium [Crestor] 10 mg PO MWF 12/14/14 Levothyroxine [Synthroid] 88 mcg PO DAILY@0630 #0 tab 09/27/15 Acetaminophen with Codeine 1 tab PO Q6H PRN #15 tab 05/19/17 [Tylenol with Codeine No. 3 300 mg-30 mg] diaZEpam [Valium] 5 mg PO Q6H PRN #15 tab 05/19/17 Albuterol HFA [Ventolin HFA 90 1 puff IH BID PRN #1 unit 08/05/17 mcg/actuation (8 g)] Oseltamivir [Tamiflu] 75 mg PO BID #10 cap 08/05/17 Promethazine DM [Phenergan DM 5 ml PO TID PRN #120 dose 02/18/18 Syrup] traMADol [Ultram] 50 mg PO TID PRN #15 tab 08/07/17 - Allergies Allergies/Adverse Reactions: Allergies Allergy/AdvReac Type Severity Reaction Status Date / Time aspirin Allergy Mild RASH Verified 09/26/15 11:41 seafood Allergy Mild RASH Uncoded 09/26/15 11:41 Review of Systems ROS Statement: Except As Marked, All Systems Reviewed And Found Negative Constitutional: Positive for: Weakness (lower body pain) Respiratory: Positive for: Cough Skin: Negative for: Rash Physical Exam - Reviewed Nursing Documentation Reviewed: Yes Vital Signs Reviewed: Yes - Physical Exam Appears: Positive for: Non-toxic, No Acute Distress Head Exam: Positive for: ATRAUMATIC Skin: Positive for: Normal Color, Warm. Negative for: Rash Eye Exam: Positive for: Normal appearance, EOMI, PERRL ENT: Positive for: Normal ENT Inspection Neck: Positive for: Normal Cardiovascular/Chest: Positive for: Regular Rate, Rhythm. Negative for: Murmur Respiratory: Positive for: Normal Breath Sounds. Negative for: Respiratory Distress Pulses-Dorsalis Pedis (L): 2+ Pulses-Dorsalis Pedis (R): 2+ Gastrointestinal/Abdominal: Positive for: Normal Exam, Soft. Negative for: Tenderness Back: Positive for: Normal Inspection Extremity: Positive for: Normal ROM, Pedal Edema. Negative for: Deformity Neurologic/Psych: Positive for: Alert, Oriented. Negative for: Motor/Sensory Deficits - Laboratory Results Result Diagrams: 08/07/17 13:10 08/07/17 13:10 - ECG O2 Sat by Pulse Oximetry: 100 (RA) Pulse Ox Interpretation: Normal Medical Decision Making Medical Decision Making: Time: --12:58 Impression: --Viral syndrome and diffuse body pain Plan: --labs --Creatine Phoshpokinase --IV fluids --Ultram 50 mg PO Reassess -- Scribe Attestation: Documented by Manish Hoffmann acting as a scribe for Abraham Rawls DO. Provider Attestation: All medical record entries made by the Scribe were at my direction and personally dictated by me. I have reviewed the chart and agree that the record accurately reflects my personal performance of the history, physical exam, medical decision making, and the department course for this patient. I have also personally directed, reviewed, and agree with the discharge instructions and disposition. Disposition - Clinical Impression Clinical Impression: Influenza-like symptoms - Patient ED Disposition Is Patient to be Admitted: No - Disposition Referrals: Jase Chopra MD [Primary Care Provider] - Disposition: Routine/Home Disposition Time: 14:50 Condition: STABLE Prescriptions: Promethazine DM [Phenergan DM Syrup] 5 ml PO TID PRN #120 dose PRN Reason: Cough And Congestion traMADol [Ultram] 50 mg PO TID PRN #15 tab PRN Reason: Pain, Moderate (4-7) Forms: [facility] (Romansh)
[2017-08-07 13:33] LABS: BASO % 0.5 % (0.0-2.0); EOS # 0.1 K/uL (0.0-0.7); EOS % 1.1 % (0.0-4.0); HEMOGLOBIN 13.7 g/dL (12.0-16.0); LYMPH # 1.4 K/uL (1.0-4.3); LYMPH % 22.3 % (20.0-40.0); MEAN CELL VOLUME 85.5 fl (81.0-99.0); MEAN CORPUSCULAR HEMOGLOBIN 28.9 pg (27.0-31.0); MEAN CORPUSCULAR HGB CONC 33.9 g/dL (33.0-37.0); MEAN PLATELET VOLUME 7.7 fl (7.2-11.7); MONO # 0.6 K/uL (0.0-0.8); MONO % 9.4 % (0.0-10.0); NEUT # 4.3 K/uL (1.8-7.0); NEUT % 66.7 % (50.0-75.0); NRBC % 0.2 % (0.0-0.0); RBC 4.74 Mil/uL (3.80-5.20); RED CELL DISTRIBUTION WIDTH 14.2 % (11.5-14.5); WHITE BLOOD COUNT 6.4 K/uL (4.8-10.8)
[2017-08-07 13:54] LABS: ALB/GLOB RATIO 1.3 (1.0-2.1); ALBUMIN 4.2 g/dL (3.5-5.0); ALT/SGPT 34 U/L (9-52); AST/SGOT 31 U/L (14-36); BLOOD UREA NITROGEN 15 mg/dl (7-17); CALCIUM 9.2 mg/dL (8.4-10.2); GFR AFRICAN-AMERICAN > 60; GFR NON-AFRICAN AMERICAN > 60
== END 2017-08-07 15:09 | disposition home or self-care (01) ==
LOC: H.ER 11:32
DX: J11.1 Influenza due to unidentified influenza virus with other respiratory manifestations (principal); E03.9 Hypothyroidism, unspecified; E78.00 Pure hypercholesterolemia, unspecified; M81.0 Age-related osteoporosis without current pathological fracture
CPT/HCPCS: 80053; 82550; 85025; 96374; 99282; J2405; J7040

== ENCOUNTER 2017-09-01 11:04 | Emergency (ER) | payer BC ==
[2017-09-01 11:06] VITALS: BP 142/79; PULSE 76; TEMP 97; O2SAT 98
[2017-09-01 11:07] VITALS: BMI 22.2
[2017-09-01] MEDS ORDERED: Sodium Chloride 0.9% 1,000 ML IV STA (12:30)
[2017-09-01 12:56] LABS: BASO # 0.1 K/uL (0.0-0.2); BASO % 0.5 % (0.0-2.0); EOS % 0.4 % (0.0-4.0); HEMOGLOBIN 13.4 g/dL (12.0-16.0); LYMPH % 8.7 % (20.0-40.0); MEAN CELL VOLUME 86.5 fl (81.0-99.0); MEAN CORPUSCULAR HGB CONC 33.5 g/dL (33.0-37.0); MEAN PLATELET VOLUME 7.1 fl (7.2-11.7); MONO # 0.6 K/uL (0.0-0.8); MONO % 5.2 % (0.0-10.0); NEUT # 9.5 K/uL (1.8-7.0); NEUT % 85.2 % (50.0-75.0); NRBC % 0.6 % (0.0-0.0); PLATELET COUNT 311 K/uL (130-400); RED CELL DISTRIBUTION WIDTH 14.2 % (11.5-14.5); WHITE BLOOD COUNT 11.1 K/uL (4.8-10.8)
--- NOTE | 2017-09-01 13:06 | CT ---
PROCEDURE: CT Abdomen and Pelvis without intravenous contrast HISTORY: abd pain COMPARISON: Prior enhanced abdomen and pelvis CT examination 03/17/2017. TECHNIQUE: Helical CT of the abdomen and pelvis was performed without oral or intravenous contrast as per referring physician request.. Contrast Dose: None Radiation dose: Total exam DLP = 277.79 mGy-cm. This CT exam was performed using one or more of the following dose reduction techniques: Automated exposure control, adjustment of the mA and/or kV according to patient size, and/or use of iterative reconstruction technique. FINDINGS: LOWER THORAX: Small hiatal hernia again evident. No acute findings in the visualized lung bases. LIVER: Unremarkable. No gross lesion or ductal dilatation. GALLBLADDER AND BILE DUCTS: Unremarkable. PANCREAS: Unremarkable. No gross lesion or ductal dilatation. SPLEEN: Unremarkable. ADRENALS: Unremarkable. No mass. KIDNEYS AND URETERS: Unremarkable. No hydronephrosis. No perirenal reaction appreciated. VASCULATURE: Unremarkable. No aortic aneurysm. BOWEL: Infrequent scattered diverticula are seen throughout the right and left hemicolon with sigmoid diverticular changes appearing nonacute at this time. Prior diverticulitis pattern appears to have resolved. No obstruction. No gross mural thickening. APPENDIX: Unremarkable. Normal appendix. PERITONEUM: Unremarkable. No free fluid. No free air. LYMPH NODES: Unremarkable. No enlarged lymph nodes. BLADDER: Limited evaluation due to limited distention. No gross findings appreciable. REPRODUCTIVE: Enlarged likely fibroid uterus is reiterated. No gross suspicious adnexal findings. BONES: Mild dextroscoliotic lumbar spinal deformity reiterated. No destructive bony lesions throughout the exam. OTHER FINDINGS: None. IMPRESSION: 1. Resolution of prior sigmoid diverticulitis pattern. Scattered colonic diverticular are again identified with the sigmoid segment most affected once again. No bowel obstruction, mesenteric edema, ascites or free intraperitoneal gas. 2. No obstructive uropathy, perinephric reaction or radiodense urolithiasis bilaterally. 3. Reiterated likely fibroid uterine changes.
[2017-09-01 13:12] LABS: ALB/GLOB RATIO 1.3 (1.0-2.1); ALBUMIN 4.4 g/dL (3.5-5.0); ALT/SGPT 43 U/L (9-52); AST/SGOT 30 U/L (14-36); BLOOD UREA NITROGEN 16 mg/dl (7-17); CALCIUM 9.3 mg/dL (8.4-10.2); GFR AFRICAN-AMERICAN > 60; GFR NON-AFRICAN AMERICAN > 60
--- NOTE | 2017-09-01 13:29 | ED PDOC ---
HPI:Nausea, Vomiting, Diarrhea Time Seen by Provider: 09/01/17 11:15 Chief Complaint (Nursing): Abdominal Pain Chief Complaint (Provider): Vomiting, Abdominal Pain History Per: Patient History/Exam Limitations: no limitations Onset/Duration Of Symptoms: Days (x1) Current Symptoms Are (Timing): Still Present Associated Symptoms: Nausea, Vomiting, Constipation. denies: Fever, Chills, Diarrhea, Back Pain, Chest Pain Additional Complaint(s): Tiff Alejo is a 67 year old female with a past medical history of hyperlipidemia, who is presenting to the ER with complains of vomiting and associated left localized abdominal pain, onset 1 day ago. Patient reports being constipated for 10 days and vomiting all morning. She states she visited her PMD, Dr. Morrell, who prescribed her Bactrim and Lactulose which provided no relief. She denies any fever, chills, diarrhea, back pain, or chest pain. Patient offers no other medical complaints at this time. Past Medical History Reviewed: Historical Data, Nursing Documentation, Vital Signs Vital Signs: Last Vital Signs Temp 97 F L 09/01/17 11:05 Pulse 76 09/01/17 11:05 Resp BP 142/79 09/01/17 11:05 Pulse Ox 98 09/01/17 11:05 - Medical History PMH: Fractures (LEFT ARM /RIBS), Hypercholesterolemia, Hypothyroidism (s/p thyroidectomy), Osteoporosis Denies: HIV, HTN, Chronic Kidney Disease - Surgical History Surgical History: No Surg Hx - Family History Family History: States: Unknown Family Hx - Social History Current smoker - smoking cessation education provided: No Alcohol: None Drugs: Denies - Immunization History Hx Tetanus Toxoid Vaccination: No Hx Influenza Vaccination: No Hx Pneumococcal Vaccination: No - Home Medications Home Medications: Ambulatory Orders Medication Instructions Recorded Rosuvastatin Calcium [Crestor] 10 mg PO MWF 12/14/14 Levothyroxine [Synthroid] 88 mcg PO DAILY@0630 #0 tab 09/27/15 Acetaminophen with Codeine 1 tab PO Q6H PRN #15 tab 05/19/17 [Tylenol with Codeine No. 3 300 mg-30 mg] diaZEpam [Valium] 5 mg PO Q6H PRN #15 tab 05/19/17 Albuterol HFA [Ventolin HFA 90 1 puff IH BID PRN #1 unit 08/05/17 mcg/actuation (8 g)] Oseltamivir [Tamiflu] 75 mg PO BID #10 cap 08/05/17 Promethazine DM [Phenergan DM 5 ml PO TID PRN #120 dose 08/07/17 Syrup] traMADol [Ultram] 50 mg PO TID PRN #15 tab 08/07/17 Nitrofurantoin Macrocrystals 100 mg PO BID #14 cap 09/01/17 [Macrobid] - Allergies Allergies/Adverse Reactions: Allergies Allergy/AdvReac Type Severity Reaction Status Date / Time aspirin Allergy Mild RASH Verified 09/01/17 11:39 seafood Allergy Mild RASH Uncoded 09/26/15 11:41 Review of Systems ROS Statement: Except As Marked, All Systems Reviewed And Found Negative Constitutional: Negative for: Fever, Chills Cardiovascular: Negative for: Chest Pain Gastrointestinal: Positive for: Nausea, Vomiting, Abdominal Pain, Constipation. Negative for: Diarrhea Musculoskeletal: Negative for: Back Pain Physical Exam - Reviewed Nursing Documentation Reviewed: Yes Vital Signs Reviewed: Yes - Physical Exam Appears: Positive for: Non-toxic, No Acute Distress Head Exam: Positive for: ATRAUMATIC, NORMAL INSPECTION, NORMOCEPHALIC Skin: Positive for: Normal Color, Warm, Dry Eye Exam: Positive for: EOMI, Normal appearance, PERRL Neck: Positive for: Normal, Painless ROM, Supple Cardiovascular/Chest: Positive for: Regular Rate, Rhythm. Negative for: Murmur Respiratory: Positive for: Normal Breath Sounds. Negative for: Respiratory Distress Gastrointestinal/Abdominal: Positive for: Soft, Tenderness (slight tenderness to the left lower quadrant) Back: Positive for: Normal Inspection. Negative for: L CVA Tenderness, R CVA Tenderness, Vertebral Tenderness Extremity: Positive for: Normal ROM. Negative for: Pedal Edema, Deformity Neurologic/Psych: Positive for: Alert, Oriented. Negative for: Motor/Sensory Deficits - Laboratory Results Result Diagrams: 09/01/17 12:38 09/01/17 12:38 - ECG O2 Sat by Pulse Oximetry: 98 (RA) Pulse Ox Interpretation: Normal Medical Decision Making Medical Decision Making: Time: 12:30 Plan: --CT ABD/Pelvis --CMP --CBC --IV Fluids --Zofran 4 mg IVP --Urine culture --Urinalysis Time: 13:05 CT ABDOMEN AND PELVIS FINDINGS: LOWER THORAX: Small hiatal hernia again evident. No acute findings in the visualized lung bases. LIVER: Unremarkable. No gross lesion or ductal dilatation. GALLBLADDER AND BILE DUCTS: Unremarkable. PANCREAS: Unremarkable. No gross lesion or ductal dilatation. SPLEEN: Unremarkable. ADRENALS: Unremarkable. No mass. KIDNEYS AND URETERS: Unremarkable. No hydronephrosis. No perirenal reaction appreciated. VASCULATURE: Unremarkable. No aortic aneurysm. BOWEL: Infrequent scattered diverticula are seen throughout the right and left hemicolon with sigmoid diverticular changes appearing nonacute at this time. Prior diverticulitis pattern appears to have resolved. No obstruction. No gross mural thickening. APPENDIX: Unremarkable. Normal appendix. PERITONEUM: Unremarkable. No free fluid. No free air. LYMPH NODES: Unremarkable. No enlarged lymph nodes. BLADDER: Limited evaluation due to limited distention. No gross findings appreciable. REPRODUCTIVE: Enlarged likely fibroid uterus is reiterated. No gross suspicious adnexal findings. BONES: Mild dextroscoliotic lumbar spinal deformity reiterated. No destructive bony lesions throughout the exam. OTHER FINDINGS: None. IMPRESSION: 1. Resolution of prior sigmoid diverticulitis pattern. Scattered colonic diverticular are again identified with the sigmoid segment most affected once again. No bowel obstruction, mesenteric edema, ascites or free intraperitoneal gas. 2. No obstructive uropathy, perinephric reaction or radiodense urolithiasis bilaterally. 3. Reiterated likely fibroid uterine changes. Time: 16:00 Labs indicate UTI, slightly elevated white count. pt informed me that she used to have diverticulitis but now resolved. discussed results with CT w her and at bedside. told them of uti and abx and outpt follow up recommended. Scribe Attestation: Documented by Lara Kim, acting as a scribe for Jesse Cruz MD. Provider Scribe Attestation: All medical record entries made by the Scribe were at my direction and personally dictated by me. I have reviewed the chart and agree that the record accurately reflects my personal performance of the history, physical exam, medical decision making, and the department course for this patient. I have also personally directed, reviewed, and agree with the discharge instructions and disposition. Disposition - Clinical Impression Clinical Impression: Abdominal pain, UTI (urinary tract infection) - Patient ED Disposition Is Patient to be Admitted: No Counseled Patient/Family Regarding: Studies Performed, Diagnosis, Need For Followup - Disposition Disposition: Routine/Home Disposition Time: 13:00 Condition: IMPROVED Additional Instructions: follow up with your primary doctor in 1-2 days return to the ED with any worsening or concerning symptoms Prescriptions: Nitrofurantoin Macrocrystals [Macrobid] 100 mg PO BID #14 cap Instructions: Urinary Tract Infection, Adult (DC) Forms: [facility] (Georgian) Print Language: UKRAINIAN
[2017-09-01 13:54] LABS: BANDS 3 % (0-2); EOSINOPHIL 1 % (0-7); LYMPHOCYTE 10 % (20-50); MONOCYTE 3 % (0-10); NEUTROPHIL 83 % (42-75); TOTAL CELLS COUNTED 100
[2017-09-01 13:55] LABS: OVALOCYTES SLIGHT; PLATELET ESTIMATE NORMAL (NORMAL)
[2017-09-01 14:10] LABS: SQUAMOUS EPITHIAL 1 /hpf (0-5); URINE BILIRUBIN NEGATIVE (NEGATIVE); URINE BLOOD MODERATE (NEGATIVE); URINE CLARITY SLIGHTY-CLOUDY (Clear); URINE COLOR YELLOW (YELLOW); URINE GLUCOSE (UA) NEG (Normal); URINE LEUKOCYTE ESTERASE SMALL Leu/uL (Negative); URINE PROTEIN 30 mg/dL (NEGATIVE); URINE UROBILINOGEN 0.2-1.0 mg/dL (0.2-1.0)
[2017-09-01] MEDS ORDERED: cefTRIAXone (Rocephin) 1 gm Inj ONE (16:40)
== END 2017-09-01 18:03 | disposition home or self-care (01) ==
LOC: H.ER 11:04
DX: N39.0 Urinary tract infection, site not specified (principal); E03.9 Hypothyroidism, unspecified; E78.00 Pure hypercholesterolemia, unspecified; M81.0 Age-related osteoporosis without current pathological fracture
CPT/HCPCS: 74176; 80053; 81003; 85025; 87086; 96365; 99284; J0696; J2405; J7040